=== PATIENT | male | born 1955 | race Caucasian/White ===

== ENCOUNTER 2023-08-31 18:51 | Emergency (ER) | payer MEDICARE, BC, SELFPAY ==
[2023-08-31 18:55] VITALS: BP 184/84; PULSE 77; RESP 16; TEMP 36.8; O2SAT 99; BMI 26.9
--- NOTE | 2023-08-31 19:03 | DI.RAD.S_ITS ---
PROCEDURE: XR FINGER LT MIN 2V INDICATIONS: cut tip of finger TECHNIQUE: AP hand, 2 views of the 3rd finger(s) acquired. COMPARISON: None. FINDINGS: Bones: No fractures or dislocations. No suspicious bony lesions. Soft tissues: No suspicious soft tissue calcifications. Loss of the skin of the distal 3rd phalanx. IMPRESSION: Loss of skin of the distal 3rd phalanx, without underlying bony abnormality. Dictated by: Chris Mcwilliams M.D. on 08/31/2023 at 19:45 Approved by: Chris Mcwilliams M.D. on 08/31/2023 at 19:46
--- NOTE | 2023-08-31 19:56 | ED.WOUNDLAC ---
HPI - Wound/Laceration General Chief Complaint: Wound/Laceration Stated Complaint: finger laceration Time Seen by Provider: 08/31/23 19:44 Source: patient Mode of arrival: Ambulatory History of Present Illness HPI narrative: Patient is a 68-year-old male who is here for evaluation on avulsion of the skin of the very distal portion his right middle finger. He said that he was on a scaffolding and fell and caught his finger on a piece of metal. No other injuries from the event. Did not hit his head. No loss of consciousness. He does need a tetanus updated. He did wash it prior to arrival. Related Data Home Medications Medication Instructions Recorded Confirmed No Known Home Medications 09/24/22 09/24/22 Allergies Allergy/AdvReac Type Severity Reaction Status Date / Time No Known Drug Allergies Allergy Unverified 09/24/22 12:23 Review of Systems Constitutional Constitutional: Reports system reviewed and no additional complaints, except as documented Musculoskeletal Musculoskeletal: Reports system reviewed and no additional complaints, except as documented Integumentary/Breasts Skin/Breast: Reports system reviewed and no additional complaints, except as documented Neurologic Neurologic: Reports system reviewed and no additional complaints, except as documented Hematologic/Lymphatic On Anticoagulants: No Patient History Social History Smoking Status: Never smoker Smoking Status: Never smoker alcohol intake frequency: 0-2 drinks per day Substance Use Type: does not use Exam Initial Vital Signs Initial Vital Signs: Vital Signs Temperature 98.2 F 08/31/23 18:55 Pulse Rate 77 08/31/23 18:55 Respiratory Rate 16 08/31/23 18:55 Blood Pressure 184/84 H 08/31/23 18:55 Pulse Oximetry 99 08/31/23 18:55 Oxygen Delivery Method Room Air 08/31/23 18:55 Skin Other: Avulsion of the skin of the very distal aspect of the right 3rd digit. It does involve the tip of the nail but not the nail bed. There was no bone exposure. Extrem Other: Avulsion as read distal 3rd finger. Course Orders Ordered: Discontinued Medications Bacitracin (Bacitracin Oint 0.9 Gm Pckt) 1 applic TOP NOW ONE Stop: 08/31/23 19:57 Last Admin: 08/31/23 20:08 Dose: 1 applic Documented By: EDISON Diphtheria/Tetanus/Acell Pertussis (Tet,Diph,Pertuss(Acell),Vac/Pf 0.5 Ml Syringe) 0.5 ml IM .ONCE ONE Stop: 08/31/23 19:57 Last Admin: 08/31/23 20:03 Dose: 0.5 ml Documented By: EDISON Vital Signs Vital signs: Vital Signs - 8 hr 08/31/23 18:55 Temperature 98.2 F Pulse Rate 77 Respiratory Rate 16 Blood Pressure 184/84 H Pulse Oximetry 99 Oxygen Delivery Method Room Air MDM - Wound/Laceration Imaging Data Extremity x-ray #1: Radiologist's Impression: PROCEDURE: XR FINGER LT MIN 2V INDICATIONS: cut tip of finger TECHNIQUE: AP hand, 2 views of the 3rd finger(s) acquired. COMPARISON: None. FINDINGS: Bones: No fractures or dislocations. No suspicious bony lesions. Soft tissues: No suspicious soft tissue calcifications. Loss of the skin of the distal 3rd phalanx. IMPRESSION: Loss of skin of the distal 3rd phalanx, without underlying bony abnormality. [facility] Narrative Medical decision making narrative: No bony involvement. His tetanus was updated. This was a skin avulsion that unfortunately is not amenable to suturing. No bleeding. Wound was irrigated. Topical antibiotic placed. Was covered with a bandage. We discussed care instructions and return precautions. This will need to heal by secondary intention. He was given return precautions and follow-up instructions. Expressed understanding and agreement. Discharge Plan Departure Patient Disposition: Home Clinical Impression: Avulsion of skin Instructions: DI for Avulsion Laceration (Not Requiring Sutures) Activity Restrictions/Additional Instructions: Keep the bandage in place for the next 24 hours. After that you can take it off. You can wash your hands like normal. Use topical antibiotic ointment such as Neosporin or bacitracin. Keep it covered like we discussed. Return to the emergency department for new or worsening symptoms. Prescriptions: No Action No Known Home Medications Referrals: Stephanie,Doctor, MD [Primary Care Provider] - Stand Alone Forms: Patient Portal/API
[2023-08-31] MEDS: TET,DIPH,PERTUSS(ACELL),VAC/PF 0.5 ML SYRINGE IM (20:03)
[2023-08-31] MEDS: BACITRACIN OINT 0.9 GM PCKT 1 APPLIC TOP (20:08)
== END 2023-08-31 21:04 | disposition home or self-care (01) ==
PROVIDERS: Emergency Provider Emergency Medicine
DX: S61.212A Laceration without foreign body of right middle finger without damage to nail, initial encounter (principal); X58.XXXA Exposure to other specified factors, initial encounter; Z23 Encounter for immunization
CPT/HCPCS: 73140; 90471; 99283; 90715